=== PATIENT | female | born 1950 | race Caucasian/White ===

== ENCOUNTER 2020-04-12 13:15 | Outpatient (CLI) | payer OTHER | END 2020-04-12 14:15 | disposition home or self-care (01) | LOC: D.MAMMO 13:15 | PROVIDERS: ATTEND Family Medicine | DX: Z12.31 Encounter for screening mammogram for malignant neoplasm of breast (principal) ==

== ENCOUNTER 2021-03-19 21:30 | Emergency (ER) | payer OTHER ==
[~2021-03-19] VITALS: Ht 167.6 cm; Wt 78.6 kg
[2021-03-19 21:31] VITALS: Ht 167.6 cm; Wt 78.6 kg
[2021-03-19 22:00] LABS: BASOPHILS 0.2 % (0-2); HEMATOCRIT 31.4 % (36.0-48.0); HEMOGLOBIN 10.1 g/dL (12-16); IMMATURE GRANULOCYTES 0.3 % (0-5); LYMPHOCYTE ABS# 1.01 10x3/uL (1.18-3.74); LYMPHOCYTES 16.8 % (15-50); MCH 26.6 pg (26.0-34.0); MCHC 32.2 g/dL (31.0-37.0); MCV 82.6 fL (80.0-100.0); MEAN PLATELET VOLUME 9.3 fL (7.4-10.4); MONOCYTES 9.2 % (2-11); NEUTROPHIL ABS# 4.12 10x3/uL (1.56-6.13); NEUTROPHILS 68.5 % (40-80); PLATELET COUNT 175 10x3/uL (130-400); RDW 13.6 % (11.5-14.5)
[2021-03-19 22:10] LABS: ALBUMIN 3.1 g/dL (3.4-5.0); ANION GAP 11.2 mmol/L (8-16); BILIRUBIN - TOTAL 0.54 mg/dL (0.2-1.3); CALCIUM 8.2 mg/dL (8.5-10.1); CARBON DIOXIDE 29.7 mmol/L (21.0-32.0); PROTEIN - SERUM 6.2 g/dL (6.4-8.2)
[2021-03-19 22:12] LABS: POTASSIUM - SERUM 2.9 mmol/L (3.5-5.1)
[2021-03-20] MEDS ORDERED: ZOFRAN ODT4 MG/UDTAB PO (02:46)
[2021-03-20 04:49] VITALS: BP 106/50
== END 2021-03-20 04:50 | disposition home or self-care (01) ==
LOC: D.ER 21:30
PROVIDERS: Student in an Organized Health Care Education/Training Program
DX: E87.6 Hypokalemia (principal); R11.2 Nausea with vomiting, unspecified; I10 Essential (primary) hypertension; M54.9 Dorsalgia, unspecified